=== PATIENT | male | born 1955 | race Caucasian/White ===

== ENCOUNTER 2021-06-30 11:12 | Outpatient (CLI) | payer BC, MEDICARE ==
[2021-06-30 12:08] LABS: #Basophils 0.1 10x3/uL (0.0-0.2); #Eosinphils 0.2 10x3/uL (0.0-0.5); #Monocytes 0.7 10x3/uL (0.0-1.1); #Neutrophils 5.1 10x3/uL (1.5-8.4); %Basophils 0.8 % (0.0-2.0); %Eosinophils 2.3 % (0.0-6.0); %Lymphocytes 16.3 % (18.0-47.0); %Monocytes 9.6 % (0.0-10.0); %Neutrophils 70.5 % (40.0-75.0); Mean Corpuscular HGB CONC 33.1 g/dL (32.0-36.0); Mean Corpuscular Hemoglobin 30.5 pg (27.0-33.0); Mean Platelet Volume 9.9 fl (7.4-10.4); Platelet Count 235 10x3/uL (150-450); RBC Distribution Width 12.8 % (11.5-14.5); Red Blood Cell (RBC) Count 5.25 10x6/uL (4.32-5.72); White Blood Cell (WBC) Count 7.3 10x3/uL (3.5-10.5)
[2021-06-30 12:09] LABS: Anion Gap 13 mmol/L (10-20); BUN (Urea Nitrogen) 10 mg/dL (8.4-25.7); Calc. Creatinine Clearance 0 mL/min (70-130); Carbon Dioxide 26 mmol/L (23-31); Chloride 106 mmol/L (98-107); Glucose 103 mg/dL (80-115); Potassium 4.5 mmol/L (3.5-5.1); Sodium 140 mmol/L (136-145)
[2021-07-01 00:36] LABS: SARS-CoV-2 PCR by NAA Not Detected (NotDetected)
== END 2021-06-30 11:13 | disposition home or self-care (01) ==
LOC: LABBT 11:12
PROVIDERS: ATTEND Internal Medicine Cardiovascular Disease
DX: Z01.812 Encounter for preprocedural laboratory examination (principal); Z20.822 Contact with and (suspected) exposure to COVID-19
CPT/HCPCS: 80048; 85025; U0003; U0005

== ENCOUNTER 2021-07-04 05:52 | Day surgery (SDC) | payer MEDICARE, BC ==
[2021-07-03 11:11] VITALS: BMI 32.1
[2021-07-04] MEDS ORDERED: Lidocaine 1% (PF) 30 ML VIAL ONE (07:26)
[2021-07-04] MEDS ORDERED: Fentanyl 100 MCG/2 ML VIAL ONE (08:01)
[2021-07-04] MEDS ORDERED: Midazolam HCl 2 mg/2 ml Vial ONE (08:01)
[2021-07-04] MEDS ORDERED: Iopamidol 370 76% 100 ML VIAL ONE (09:21)
== END 2021-07-04 13:30 | disposition home or self-care (01) ==
LOC: SDC 05:52 → CCL 13:30
PROVIDERS: ATTEND Internal Medicine Cardiovascular Disease
PROC: 4A023N7 Measurement of Cardiac Sampling and Pressure, Left Heart, Percutaneous Approach (ICD-10-PCS; principal; 2021-07-04)
PROC: B2111ZZ Fluoroscopy of Multiple Coronary Arteries using Low Osmolar Contrast (ICD-10-PCS; 2021-07-04)
DX: I11.0 Hypertensive heart disease with heart failure (principal); I50.22 Chronic systolic (congestive) heart failure; I42.9 Cardiomyopathy, unspecified; I44.7 Left bundle-branch block, unspecified; E78.5 Hyperlipidemia, unspecified; E66.9 Obesity, unspecified; Z68.31 Body mass index [BMI] 31.0-31.9, adult; Z79.82 Long term (current) use of aspirin; Z79.899 Other long term (current) drug therapy
CPT/HCPCS: 76942; 93458; 99152; 99153; J2001; J2250; J3010; Q9967

== ENCOUNTER 2021-09-19 09:06 | Outpatient (CLI) | payer MEDICARE, BC ==
[2021-09-19 12:35] LABS: Prothrombin Time 10.6 sec (9.5-12.1)
[2021-09-19 12:51] LABS: Anion Gap 15 mmol/L (10-20); BUN (Urea Nitrogen) 10 mg/dL (8.4-25.7); Calc. Creatinine Clearance 0 mL/min (70-130); Calcium 8.7 mg/dL (7.8-10.44); Carbon Dioxide 24 mmol/L (23-31); Chloride 106 mmol/L (98-107); Glucose 81 mg/dL (80-115); Sodium 140 mmol/L (136-145)
[2021-09-19 13:00] LABS: Hemoglobin 14.9 g/dL (13.5-17.5); Mean Corpuscular HGB CONC 33.2 g/dL (32.0-36.0); Mean Corpuscular Hemoglobin 30.5 pg (27.0-33.0); Mean Corpuscular Volume 91.8 fl (81.2-95.1); Mean Platelet Volume 10.4 fl (7.4-10.4); Platelet Count 230 10x3/uL (150-450); RBC Distribution Width 13.8 % (11.5-14.5); Red Blood Cell (RBC) Count 4.89 10x6/uL (4.32-5.72); White Blood Cell (WBC) Count 6.2 10x3/uL (3.5-10.5)
[2021-09-19 20:15] LABS: SARS-CoV-2 PCR by NAA Not Detected (NotDetected)
== END 2021-09-19 09:07 | disposition home or self-care (01) ==
LOC: LABBT 09:06
PROVIDERS: ATTEND Internal Medicine Cardiovascular Disease
DX: Z01.812 Encounter for preprocedural laboratory examination (principal); I50.20 Unspecified systolic (congestive) heart failure; R94.39 Abnormal result of other cardiovascular function study; Z20.822 Contact with and (suspected) exposure to COVID-19
CPT/HCPCS: 80048; 85027; 85610; U0003; U0005

== ENCOUNTER 2021-09-22 07:22 | Day surgery (SDC) | payer MEDICARE, BC ==
[2021-09-19 09:45] VITALS: BMI 30.4
[2021-09-22] MEDS ORDERED: Vancomycin 1.5 GRAM/300 ML BAG ONE (07:27)
[2021-09-22] MEDS ORDERED: Iopamidol 370 76% 50 ML VIAL FS ONE (09:58)
[2021-09-22] MEDS ORDERED: Gentamicin 80 MG/2 ML VIAL ONE ×2 (10:11→14:56)
[2021-09-22] MEDS ORDERED: CEFAZOLIN 1 GM VIAL ONE (10:11)
[2021-09-22] MEDS ORDERED: Lidocaine 1% (PF) 30 ML VIAL ONE (10:11)
[2021-09-22] MEDS ORDERED: Propofol 500 MG/50 ML VIAL ONE ×2 (13:55→14:42)
[2021-09-22] MEDS ORDERED: Midazolam HCl 2 mg/2 ml Vial ONE (13:55)
[2021-09-22] MEDS ORDERED: Fentanyl 100 MCG/2 ML VIAL ONE (13:55)
[2021-09-22] MEDS ORDERED: PHENYLEPHRINE-NS 100 MCG/ML 10 ML SYRINGE ONE ×2 (13:56→14:23)
[2021-09-22] MEDS ORDERED: HYDROcodone/Acetaminophen 5/325 mg Tablet ONE (17:23)
== END 2021-09-22 19:40 | disposition home or self-care (01) ==
LOC: SDC 07:22
PROVIDERS: ATTEND Internal Medicine Cardiovascular Disease
PROC: 0JH609Z Insertion of Cardiac Resynchronization Defibrillator Pulse Generator into Chest Subcutaneous Tissue and Fascia, Open Approach (ICD-10-PCS; principal; 2021-09-22)
PROC: 02HL3KZ Insertion of Defibrillator Lead into Left Ventricle, Percutaneous Approach (ICD-10-PCS; 2021-09-22)
PROC: 02H63KZ Insertion of Defibrillator Lead into Right Atrium, Percutaneous Approach (ICD-10-PCS; 2021-09-22)
PROC: 02HK3KZ Insertion of Defibrillator Lead into Right Ventricle, Percutaneous Approach (ICD-10-PCS; 2021-09-22)
DX: I11.0 Hypertensive heart disease with heart failure (principal); I50.22 Chronic systolic (congestive) heart failure; I42.8 Other cardiomyopathies; I44.7 Left bundle-branch block, unspecified; E78.5 Hyperlipidemia, unspecified; Z79.82 Long term (current) use of aspirin; Z79.899 Other long term (current) drug therapy
CPT/HCPCS: 33225; 33249; 71045; 93005; C1769; 93010; C1777; C1898; C1900; J0690; J1580; J2001; J2250; J2704; J3010; J3370; Q9967

== ENCOUNTER 2024-02-25 16:00 | Outpatient (CLI) | payer MEDICARE | END 2024-02-25 16:01 | disposition home or self-care (01) | LOC: SLEEPLAB 16:00 | PROVIDERS: ATTEND Internal Medicine | DX: G47.33 Obstructive sleep apnea (adult) (pediatric) (principal); R53.83 Other fatigue; R06.83 Snoring; I11.0 Hypertensive heart disease with heart failure; I50.22 Chronic systolic (congestive) heart failure; G47.00 Insomnia, unspecified | CPT/HCPCS: 95800 ==